=== PATIENT | male | born 1935 | race Two or more races ===

== ENCOUNTER 2017-08-14 10:14 | Emergency (ER) | payer MEDICARE, OTHER ==
[~2017-08-14] VITALS: Ht 172.7 cm; Wt 68.9 kg
--- NOTE | 2017-08-14 10:16 | NUR ---
JEIMY FROM HOME DT WITNESSED SYNCOPAL, PATIENT WAS ASSISTED DOWN THE GROUND, NO REPORTED TRAUMA. PATIENT RECEIVED IN NO DISTRESS, SATING WELL,. PATIENT WITH TRACHE. SKIN IS WARM TO TOUCH AND NON DIAOPHORETIC. PATIENT IS AFEBRILE. VSS. CONNECTED PT TO TELE MONITOR. PENDING MD ROSADO
--- NOTE | 2017-08-14 10:28 | NUR ---
MD ELISE AT BEDSIDE
[2017-08-14] MEDS ORDERED: TEMA22.53 PO (10:37)
[2017-08-14] MEDS ORDERED: GLIP10TA11 PO (10:37)
[2017-08-14] MEDS ORDERED: METF10002 PO (10:37)
[2017-08-14] MEDS ORDERED: TERA5CAP PO (10:37)
[2017-08-14] MEDS ORDERED: BENA20TA2 PO (10:37)
[2017-08-14] MEDS ORDERED: GABA-534 PO (10:37)
[2017-08-14] MEDS ORDERED: SIMV40TA5 PO (10:37)
[2017-08-14] MEDS ORDERED: OMEP20CA10 PO (10:37)
[2017-08-14] MEDS ORDERED: oxyCODONE/APAP (5/325 MG) 1 UDTAB TABLET ONE (10:38)
[2017-08-14] MEDS ORDERED: ONDANSETRON 4 MG TAB.RAPDIS ONE (10:38)
[2017-08-14] MEDS ORDERED: oxyCODONE/APAP (5/325 MG) 1 UDTAB TABLET PO ONE (11:00)
[2017-08-14] MEDS ORDERED: ONDANSETRON 4 MG TAB.RAPDIS SL ONE (11:00)
--- NOTE | 2017-08-14 12:05 | NUR ---
[facility] E[place] 30 [place]. [place] [id number] [facility] [facility] [place], [id number]
--- NOTE | 2017-08-14 12:06 | NUR ---
CALLED [facility],SPOKE WITH MARK ANTHONY, EMT CALLED FOR [place], ETA 30 MINUTES, AND PATIENT INFORMED
[2017-08-14 13:05] VITALS: BP 130/78
--- NOTE | 2017-08-14 13:05 | NUR ---
PATIENT WAS DISCHARGED TO [facility]IA [facility]. PATIENT'S AWARE
== END 2017-08-14 13:08 | disposition home or self-care (01) ==
LOC: ER 10:16
DX: R55 Syncope and collapse (principal); C78.39 Secondary malignant neoplasm of other respiratory organs; E11.9 Type 2 diabetes mellitus without complications; I10 Essential (primary) hypertension; I25.10 Atherosclerotic heart disease of native coronary artery without angina pectoris; Z79.84 Long term (current) use of oral hypoglycemic drugs; Z85.21 Personal history of malignant neoplasm of larynx; Z51.5 Encounter for palliative care
CPT/HCPCS: A4606; Q0162; Z7610